=== PATIENT | female | born 1995 | race African-American/Black ===

== ENCOUNTER 2016-09-05 14:11 | Emergency (ER) | payer OTHER ==
[2016-09-05 14:24] VITALS: BMI 26.9
[2016-09-05] MEDS ORDERED: SODIUM CHLORIDE 1,000 ML IV STA (16:28)
[2016-09-05] MEDS ORDERED: MAG HYDROX/AL HYDROX/SIMETH 30 ML UNIT-DOSE CUP PO ONE (16:28)
[2016-09-05] MEDS ORDERED: ONDANSETRON 4 MG/2 ML VIAL IVPUSH ONE (16:28)
--- NOTE | 2016-09-05 16:29 | PDOC ---
History of Present Illness - General Chief Complaint: Pain Stated Complaint: NAUSEA, ABD PAIN, DIZZINESS History Source: Patient Exam Limitations: No Limitations - History of Present Illness Initial Comments: 09/05/16 16:57 HPI: This 21-year-old female complaint of nausea, vomiting, epigastric pain, chills and a fever of over 101 yesterday. She was in the ER last evening however she did not come in and be seen and went home and was found to have a fever and took Tylenol. She is now back again with similar complaints and is in the ER for evaluation. She also came in with a large amount of cutting fruit from the grocery store. She is eating a mairly at this current time. There Is no obvious vomiting. Chief Compliant: Epigastric pain, nausea vomiting MH: Denies FH: Pt has not recently traveled outside the country in the last 30 days. Pt has not been in contact with people who have traveled out of the country, in contact with people who have been ill with fever, n, v, d. SH: smoking use: NONE illicit drug use: NONE alcohol use: NONE PSH: Home med use noted on OCT Allergies: Shellfish and pollen Immunizations: PCP: Does not have a primary FRUIT OR NUT FARMWORKER: Dr. Lambert LMP: G P : Past History - Past Medical History Allergies/Adverse Reactions: Allergies Allergy/AdvReac Type Severity Reaction Status Date / Time shellfish derived Allergy Severe throat Verified 09/05/16 14:24 closes pollen extracts AdvReac Severe Itching Verified 09/05/16 14:24 Home Medications: Ambulatory Orders NK [No Known Home Medication] 09/05/16 Asthma: No Cancer: No Cardiac Disorders: No Diabetes: No HTN: No Seizures: No Thyroid Disease: No - Psycho/Social/Smoking Cessation Hx Anxiety: No Suicidal Ideation: No Smoking History: Never smoked Have you smoked in the past 12 months: No Hx Alcohol Use: Yes (SOCIAL) Drug/Substance Use Hx: No Substance Use Type: None Hx Substance Use Treatment: No Review of Systems - Review of Systems Able to Perform ROS?: Yes Comments:: 09/05/16 17:01 General statement: I'm having abdominal pain as well as nausea and vomiting with a fever Hematology: neg history of bleeding/blood thinners Skin: Neg for lesions, rash, bruising. HEENT: Neg symptoms Respiratory: Neg SOB or difficulty in breathing Cardiac: Neg chest pain GI: Positive epigastric pain, with n/v : Neg problems on voiding MS: Neg for joint pain/stiffness, no edema Neuro: Neg for LOC, weakness, Endocrine: Neg for excess thirst/hunger, cold/heat intolerance, excess sweating Allergies: Neg for drug allergies *Physical Exam - Vital Signs Last Vital Signs Temp Pulse Resp BP Pulse Ox 98.2 F 69 20 120/76 99 09/05/16 14:21 09/05/16 14:21 09/05/16 14:21 09/05/16 14:21 09/05/16 14:21 - Physical Exam Comments: 09/05/16 17:02 General Appearance: This well appearing 21-year-old female who is eating during this interview V/S: hemodynamically stable, afebrile although she states she had a fever and took Tylenol earlier today Skin: WNL of pt's skin color, no signs of pallor, mottling, cyanosis Head:symmetrical Eyes: EOM's intact, PERRLA Ears: denies pain Nose: patent Throat: lips, teeth, gums, tongue, buccal mucos pink and moist Lungs: Chest symmetry equal. Cap refill <3 seconds. Lung sounds clear Cardiac: PMI at R 4MCL space, pos S1 and S2, regular rate. Abdomen: Soft, round, positive for epigastric mild sylvia on palpation : Not observed Muscularskeletal: Gait steady, ambulated in to ER, no edema +PMS Neuro: AAOx3, cognitively intact, speech clear and appropriate. ED Treatment Course - LABORATORY CBC & Chemistry Diagram: 09/05/16 16:40 09/05/16 16:40 Medical Decision Making - Medical Decision Making 09/05/16 17:02 Patient initially seen and examined. Patient is stating she's had some epigastric pain, nausea, vomiting, chills, temperature of 101. This is been going on for last couple of days. a/p Suspicious for a GI disturbance possibly viral 1 labs 2 you a, 3 IV fluids for hydration, 4 Zofran for nausea, 5 Mylanta for acid reflux I explained that she should not be eating at this time as she is here for GI disturbance and we need to evaluate to make sure that the medications are working. 09/05/16 17:57 Pt is requesting food and states she is better. pt will be discharged at this time *DC/Admit/Observation/Transfer Diagnosis at time of Disposition: Gastritis - Discharge Dispostion Disposition: HOME Condition at time of disposition: Good Admit: No - Referrals Referrals: Lamonte Cordero MD [Primary Care Provider] - Hayder Heath MD [Staff Physician] - - Patient Instructions Printed Discharge Instructions: [place] Diet Additional Instructions: Discharge instructions 1. Please follow up with your primary physician within the next few days and explain that you have been seen here in the Emergency Room. 2. If you experience any worsening of symptoms, please return to the ER 3. Rest and stick with a bland diet 4. Drink plenty of water - Post Discharge Activity Work/School Note: Back to Work
[2016-09-05] MEDS ORDERED: ONDANSETRON 4 MG/2 ML VIAL ONE (16:36)
[2016-09-05] MEDS ORDERED: MAG HYDROX/AL HYDROX/SIMETH 30 ML UNIT-DOSE CUP ONE (16:36)
[2016-09-05 16:55] LABS: WHITE BLOOD COUNT 4.5 K/mm3 (4.0-10.0)
[2016-09-05 16:56] LABS: BASOPHIL 0.5 % (0-2.0); EOSINOPHIL 0.1 % (0-4.5); MCH 27.7 pg (25.7-33.7); MCHC 32.7 g/dl (32.0-36.0); MEAN CELL VOLUME 84.6 fl (80-96); MEAN PLT VOLUME 9.3 fl (7.5-11.1); NEUTROPHILS 73.8 % (42.8-82.8); PLATELET COUNT 227 K/MM3 (134-434); RDW 13.9 % (11.6-15.6)
[2016-09-05 17:18] LABS: CALCIUM 9.1 mg/dL (8.5-10.1)
[2016-09-05 17:24] LABS: ALBUMIN 3.8 g/dl (3.4-5.0); ALK PHOS 61 U/L (45-117); ANION GAP 9 (8-16); BILIRUBIN,TOTAL 1.1 mg/dL (0.2-1.0); CO2 24 mmol/L (21-32); CREATININE 0.6 mg/dL (0.55-1.02); GLUCOSE,RANDOM 113 mg/dL (74-106); SGOT/AST 14 U/L (15-37); SGPT/ALT 16 U/L (12-78); TOT PROT 7.1 g/dl (6.4-8.2)
[2016-09-05 17:47] LABS: URINE APPEARANCE SLCLOUDY; URINE BILIRUBIN NEGATIVE (NEGATIVE); URINE BLOOD NEGATIVE (NEGATIVE); URINE COLOR YELLOW; URINE GLUCOSE (UA) NEGATIVE (NEGATIVE); URINE KETONE 2+ (NEGATIVE); URINE NITRITE NEGATIVE (NEGATIVE); URINE PROTEIN NEGATIVE (NEGATIVE); URINE UROBILINOGEN 4.0 E.U/dl E.U./dl (0.2-1.0)
[2016-09-05 17:57] LABS: URINE LEUK ESTERASE TRACE (NEGATIVE)
[2016-09-05 18:06] LABS: URINE MUCUS FEW; URINE RBC 1 /hpf (0-3); URINE WBC 3 /hpf (3-5)
[2016-09-05 18:17] VITALS: BP 120/80; PULSE 72; TEMP 97.5
== END 2016-09-05 18:17 | disposition home or self-care (01) ==
LOC: JER 14:11
PROC: 3E0333Z Introduction of Anti-inflammatory into Peripheral Vein, Percutaneous Approach (ICD-10-PCS; principal; 2016-09-05)
PROC: 3E0337Z Introduction of Electrolytic and Water Balance Substance into Peripheral Vein, Percutaneous Approach (ICD-10-PCS; 2016-09-05)
DX: K29.70 Gastritis, unspecified, without bleeding (principal)
CPT/HCPCS: 36415; 80053; 81003; 81015; 83690; 85025; 96361; 96374; 99284-25

== ENCOUNTER 2017-04-22 03:45 | Inpatient (IN) | payer OTHER ==
[2017-04-22] MEDS ORDERED: AMPICILLIN - 2 GM in SODIUM CHLORIDE 100 ML IVPB ONE (04:15)
[2017-04-22 04:46] LABS: BASOPHIL 0.5 % (0-2.0); EOSINOPHIL 0.4 % (0-4.5); MCH 25.5 pg (25.7-33.7); MCHC 32.1 g/dl (32.0-36.0); MEAN CELL VOLUME 79.4 fl (80-96); MEAN PLT VOLUME 11.2 fl (7.5-11.1); NEUTROPHILS 62.8 % (42.8-82.8); PLATELET COUNT 170 K/MM3 (134-434); RDW 14.7 % (11.6-15.6); WHITE BLOOD COUNT 6.3 K/mm3 (4.0-10.0)
[2017-04-22 04:58] LABS: INR 0.94 (0.82-1.09); PROTHROMBIN TIME (PATIENT) 10.3 SEC (9.98-11.88)
[2017-04-22 05:00] LABS: ACTIVATED PTT 27.9 SECONDS (26.9-34.4)
[2017-04-22 05:08] LABS: ALBUMIN 2.8 g/dl (3.4-5.0); ALK PHOS 281 U/L (45-117); ANION GAP 10 (8-16); BILIRUBIN,TOTAL 0.6 mg/dL (0.2-1.0); CALCIUM 8.7 mg/dL (8.5-10.1); CO2 25 mmol/L (21-32); CREATININE 0.7 mg/dL (0.55-1.02); GLUCOSE,RANDOM 80 mg/dL (74-106); SGOT/AST 19 U/L (15-37); SGPT/ALT 12 U/L (12-78); TOT PROT 6.7 g/dl (6.4-8.2)
[2017-04-22 05:12] VITALS: BMI 28.4
[2017-04-22] MEDS ORDERED: morphine SULFATE/Preservative Free 0.5 MG/ML (1cc Syringe) SPIN ONE (05:16)
[2017-04-22 05:37] LABS: HIV 1 & 2 AB NEGATIVE; HIV 1 AGp24 NEGATIVE
[2017-04-22 05:52] LABS: VENOUS PH 7.34 (7.32-7.42)
[2017-04-22 05:53] LABS: VENOUS BLOOD GAS HCO3 25.2 meq/L (19-25)
[2017-04-22] MEDS ORDERED: CITRIC ACID/SODIUM CITRATE 30 ML UNIT-DOSE CUP PO ONE (06:04)
[2017-04-22] MEDS ORDERED: ONDANSETRON 4 MG/2 ML VIAL IVPB PRN (06:07)
[2017-04-22] MEDS ORDERED: IBUPROFEN 600 MG TABLET (FP) PO PRN (06:07)
[2017-04-22] MEDS ORDERED: METHYLERGONOVINE MALEATE 0.2 MG/1 ML AMP IM PRN (06:07)
[2017-04-22] MEDS ORDERED: IBUPROFEN 800 MG/8 ML IJ IVPB PRN (06:08)
--- NOTE | 2017-04-22 06:11 | OP ---
Operative Note - Note: Operative Date: 04/22/17 Pre-Operative Diagnosis: Non Reassuring Heart rate Operation: Primary Low Transverse Findings: Baby girl in ROT position Post-Operative Diagnosis: Same as Pre-op Surgeon: Vanesa Triplett Car Audio Installer: Kevan Mckeon Anesthesia: Spinal Specimens Removed: Placenta Estimated Blood Loss (mls): 700
[2017-04-22] MEDS ORDERED: ELECTROLYTE-148 SOLN 1,000 ML IV SCH (06:15)
--- NOTE | 2017-04-22 06:16 | HP ---
Past Medical History - Admission Chief Complaint: Labor pain History of Present Illness: 21 yo @ 40 weeks gestation, EDC 04/16/17, presents to L&D c/o labor pain. Patient was admitted but few minutes later it was observed that heart rate was not reassuring and decision made for . History Source: Patient Limitations to Obtaining History: No Limitations - Past Medical History ...: 2 ...Para: 1 ...Term: 1 ...: 0 ...Spon : 0 ...Induced : 0 ...Multiple Gestation: 0 ...LMP: 07/10/16 ... Weeks Gestation by Dates: 40.1 ...EDC by Dates: 04/23/17 ...EDC by Sono: 04/16/17 - Past Surgical History Past Surgical History: Yes: None Hx Myomectomy: No Hx Transabdominal Cerclage: No - Smoking History Smoking history: Never smoked Have you smoked in the past 12 months: No - Alcohol/Substance Use Hx Alcohol Use: No History of Substance Use: reports: None - Social History History of Recent Travel: No Home Medications - Allergies Allergies/Adverse Reactions: Allergies Allergy/AdvReac Type Severity Reaction Status Date / Time shellfish derived Allergy Severe throat Verified 09/05/16 14:24 closes pollen extracts AdvReac Severe Itching Verified 09/05/16 14:24 - Home Medications Home Medications: Ambulatory Orders Pnv 29-1 Tablet 1 tab PO DAILY 04/22/17 Family Disease History - Family Disease History Family History: Unremarkable Review of Systems - Review of Systems Constitutional: reports: No Symptoms Eyes: reports: No Symptoms HENT: reports: No Symptoms Neck: reports: No Symptoms Cardiovascular: reports: No Symptoms Respiratory: reports: No Symptoms Gastrointestinal: reports: No Symptoms Genitourinary: reports: Pain Breasts: reports: No Symptoms Reported Musculoskeletal: reports: No Symptoms Neurological: reports: No Symptoms Psychiatric: reports: No Symptoms Pain Intensity: 8 Physical Exam - Maternity Vital Signs: Vital Signs Temperature 99.5 F 04/22/17 03:47 Pulse Rate 80 04/22/17 03:47 Respiratory Rate 20 04/22/17 03:47 Blood Pressure 124/74 04/22/17 03:47 O2 Sat by Pulse Oximetry (%) Constitutional: Yes: Well Nourished Eyes: Yes: Conjunctiva Clear HENT: Yes: Atraumatic Neck: Yes: Supple Cardiovascular: Yes: Regular Rate and Rhythm Lungs: Clear to auscultation - Abdominal Exam/OB Presentation: Vertex Contractions: Yes Intensity: Mod/Strong - Vaginal Exam/OB Vaginal Bleediing: No Speculum Exam: No Dilatation (cm): 7 Effacement (%): 100 Amniotic Membrane Status: Bulging Station: -2 - Physical Exam Musculoskeletal: Yes: WNL Extremities: Yes: WNL ...Motor Strength: WNL Psychiatric: Yes: Alert, Oriented - Labs Lab Results: CBC, BMP 04/22/17 04:25 04/22/17 04:25 Problem List - Problems (1) Status post primary low transverse section Code(s): Z98.891 - HISTORY OF UTERINE SCAR FROM PREVIOUS SURGERY Assessment/Plan Active labor Non reassuring heart rate Prep and shave Consent signed Anesthesia to see patient
[2017-04-22] MEDS: D5W-LR W/ 20 UNITS OXYTOCIN 1,000 ML IV SCH ×2 (06:44→13:36)
[2017-04-22 08:01] LABS: URINE MARIJUANA THC NEGATIVE ng/ml (CUTOFF=50)
[2017-04-22] MEDS: FERROUS SO4 325 MG TABLET (FP) PO SCH ×2 (10:46→22:20)
[2017-04-22] MEDS: PRENATAL VITAMINS W/ FOLIC ACID TABLET (FP) PO SCH (10:46)
[2017-04-22] MEDS: IBUPROFEN 600 MG TABLET (FP) PO PRN (22:20)
[2017-04-22] MEDS: ACETAMINOPHEN 325 MG TABLET (FP) PO PRN (22:20)
[2017-04-22] MEDS: SIMETHICONE 80 MG TAB.CHEW (FP) PO PRN (22:20)
[2017-04-23] MEDS ORDERED: BISACODYL 10 MG SUPP.RECT RC PRN (06:07)
[2017-04-23 08:49] LABS: BASOPHIL 0.1 % (0-2.0); EOSINOPHIL 0.1 % (0-4.5); MCH 25.1 pg (25.7-33.7); MCHC 31.3 g/dl (32.0-36.0); MEAN PLT VOLUME 10.5 fl (7.5-11.1); NEUTROPHILS 76.1 % (42.8-82.8); PLATELET COUNT 162 K/MM3 (134-434); RDW 14.6 % (11.6-15.6); WHITE BLOOD COUNT 9.7 K/mm3 (4.0-10.0)
--- NOTE | 2017-04-23 09:39 | PN ---
Progress Note (short form) - Note Progress Note: Post op day#1.S/P C section under spinal anesthesia with duramorph uneventful.Patient stable and c/o little pain for which she is on medication.No any anesthesia related problem.Patient Dc from the anesthesia care.
[2017-04-23] MEDS: PRENATAL VITAMINS W/ FOLIC ACID TABLET (FP) PO SCH (09:40)
[2017-04-23] MEDS: FERROUS SO4 325 MG TABLET (FP) PO SCH ×2 (09:40→23:16)
[2017-04-23] MEDS: ACETAMINOPHEN 325 MG TABLET (FP) PO PRN (09:41)
[2017-04-23] MEDS: IBUPROFEN 600 MG TABLET (FP) PO PRN ×3 (09:41→21:56)
[2017-04-23] MEDS: SIMETHICONE 80 MG TAB.CHEW (FP) PO PRN ×3 (09:42→21:55)
--- NOTE | 2017-04-23 12:31 | PN ---
Post Progress Note - Subjective Subjective: 21 yo Para 2, status post primary , seen and evaluated. No complaints Post Day: 1 Type of Delivery: Primary C/S Vital Signs: Vital Signs Temperature 98.2 F 04/23/17 08:38 Pulse Rate 84 04/23/17 08:38 Respiratory Rate 20 04/23/17 08:38 Blood Pressure 130/78 04/23/17 08:38 O2 Sat by Pulse Oximetry (%) 100 04/22/17 06:45 Breast Exam: Yes: Soft Uterus: Yes: Fundus Firm Incision: Yes: Dressing dry and intact Abdomen/GI: Yes: Abdomen soft, Tolerating PO Lochia: Yes: Rubra Lochia, amount: Small Extremities: Yes: Calves non-tender Perineum: Yes: Intact Activity: Ambulating - Labs Labs: CBC WBC 9.7 K/mm3 (4.0-10.0) D 04/23/17 07:30 RBC 3.44 M/mm3 (3.60-5.2) L 04/23/17 07:30 Hgb 8.6 GM/dL (10.7-15.3) L D 04/23/17 07:30 Hct 27.5 % (32.4-45.2) L D 04/23/17 07:30 MCV 80.0 fl (80-96) 04/23/17 07:30 MCH 25.1 pg (25.7-33.7) L 04/23/17 07:30 MCHC 31.3 g/dl (32.0-36.0) L 04/23/17 07:30 RDW 14.6 % (11.6-15.6) 04/23/17 07:30 Plt Count 162 K/MM3 (134-434) 04/23/17 07:30 MPV 10.5 fl (7.5-11.1) 04/23/17 07:30 Neutrophils % 76.1 % (42.8-82.8) D 04/23/17 07:30 Lymphocytes % 15.5 % (8-40) D 04/23/17 07:30 Monocytes % 8.2 % (3.8-10.2) 04/23/17 07:30 Eosinophils % 0.1 % (0-4.5) 04/23/17 07:30 Basophils % 0.1 % (0-2.0) 04/23/17 07:30 Problem List - Problems (1) Status post primary low transverse section Code(s): Z98.891 - HISTORY OF UTERINE SCAR FROM PREVIOUS SURGERY Assessment/Plan Status post primary Stable Ambulation Continue Post op care
[2017-04-23] MEDS: oxyCODONE HCL 5 MG TABLET PO PRN ×2 (15:41→21:55)
[2017-04-24] MEDS: SIMETHICONE 80 MG TAB.CHEW (FP) PO PRN ×4 (03:57→21:22)
[2017-04-24] MEDS: oxyCODONE HCL 5 MG TABLET PO PRN ×4 (03:58→21:22)
[2017-04-24] MEDS: IBUPROFEN 600 MG TABLET (FP) PO PRN ×2 (03:58→21:21)
--- NOTE | 2017-04-24 08:30 | PN ---
Post Progress Note - Subjective Subjective: c/o pain scale 6-7/10 Post Day: 2 Type of Delivery: Primary C/S Vital Signs: Vital Signs Temperature 98.3 F 04/24/17 07:10 Pulse Rate 79 04/24/17 07:10 Respiratory Rate 20 04/24/17 07:10 Blood Pressure 127/75 04/24/17 07:10 O2 Sat by Pulse Oximetry (%) 100 04/22/17 06:45 Breast Exam: Yes: Soft, Other (BF ). No: Engorged Uterus: Yes: Fundus Firm, Fundus below umbilicus, Non-tender Incision: Yes: Dressing dry and intact (to be removed ). No: Redness, Oozing Abdomen/GI: Yes: Abdomen soft, Passing flatus (BM not done ), Tolerating PO ( diet ). No: Abdominal Distention, Tender Lochia: Yes: Rubra Lochia, amount: Moderate Extremities: Yes: Calves non-tender, Edema Perineum: Yes: Intact Activity: Ambulating - Labs Labs: CBC WBC 9.7 K/mm3 (4.0-10.0) D 04/23/17 07:30 RBC 3.44 M/mm3 (3.60-5.2) L 04/23/17 07:30 Hgb 8.6 GM/dL (10.7-15.3) L D 04/23/17 07:30 Hct 27.5 % (32.4-45.2) L D 04/23/17 07:30 MCV 80.0 fl (80-96) 04/23/17 07:30 MCH 25.1 pg (25.7-33.7) L 04/23/17 07:30 MCHC 31.3 g/dl (32.0-36.0) L 04/23/17 07:30 RDW 14.6 % (11.6-15.6) 04/23/17 07:30 Plt Count 162 K/MM3 (134-434) 04/23/17 07:30 MPV 10.5 fl (7.5-11.1) 04/23/17 07:30 Neutrophils % 76.1 % (42.8-82.8) D 04/23/17 07:30 Lymphocytes % 15.5 % (8-40) D 04/23/17 07:30 Monocytes % 8.2 % (3.8-10.2) 04/23/17 07:30 Eosinophils % 0.1 % (0-4.5) 04/23/17 07:30 Basophils % 0.1 % (0-2.0) 04/23/17 07:30 Assessment/Plan Anemia stable plan ct po care
[2017-04-24] MEDS: PRENATAL VITAMINS W/ FOLIC ACID TABLET (FP) PO SCH (09:21)
[2017-04-24] MEDS: FERROUS SO4 325 MG TABLET (FP) PO SCH ×2 (09:21→21:25)
[2017-04-24] MEDS: ACETAMINOPHEN 325 MG TABLET (FP) PO PRN ×2 (10:33→15:47)
[2017-04-24] MEDS: SENNOSIDES/DOCUSATE COMBO (SENNA PLUS) TABLET (UD) PO PRN (21:22)
[2017-04-25 08:05] LABS: BASOPHIL 0.2 % (0-2.0); EOSINOPHIL 0.9 % (0-4.5); MCHC 31.9 g/dl (32.0-36.0); MEAN CELL VOLUME 78.6 fl (80-96); MEAN PLT VOLUME 9.8 fl (7.5-11.1); NEUTROPHILS 63.4 % (42.8-82.8); PLATELET COUNT 225 K/MM3 (134-434); RDW 14.8 % (11.6-15.6); WHITE BLOOD COUNT 5.9 K/mm3 (4.0-10.0)
[2017-04-25] MEDS: PRENATAL VITAMINS W/ FOLIC ACID TABLET (FP) PO SCH (09:23)
[2017-04-25] MEDS: SIMETHICONE 80 MG TAB.CHEW (FP) PO PRN ×2 (09:24→17:40)
[2017-04-25] MEDS: FERROUS SO4 325 MG TABLET (FP) PO SCH ×2 (09:25→22:58)
[2017-04-25] MEDS: IBUPROFEN 600 MG TABLET (FP) PO PRN ×2 (09:25→17:41)
[2017-04-25] MEDS: oxyCODONE HCL 5 MG TABLET PO PRN ×2 (09:26→17:40)
--- NOTE | 2017-04-25 09:52 | PN ---
Post Progress Note - Subjective Subjective: 21 yo status post primary , seen and evaluated. Doing well, no complaints. Post Day: 3 Type of Delivery: Primary C/S Vital Signs: Vital Signs Temperature 98.5 F 04/25/17 06:00 Pulse Rate 86 04/25/17 06:00 Respiratory Rate 18 04/25/17 06:00 Blood Pressure 130/88 04/25/17 06:00 O2 Sat by Pulse Oximetry (%) 100 04/22/17 06:45 Breast Exam: Yes: Soft Uterus: Yes: Fundus Firm Incision: Yes: [place] intact Abdomen/GI: Yes: Abdomen soft, Tolerating PO Lochia: Yes: Rubra Lochia, amount: Small Extremities: Yes: Calves non-tender Perineum: Yes: Intact Activity: Ambulating - Labs Labs: CBC WBC 5.9 K/mm3 (4.0-10.0) D 04/25/17 07:30 RBC 3.54 M/mm3 (3.60-5.2) L 04/25/17 07:30 Hgb 8.9 GM/dL (10.7-15.3) L 04/25/17 07:30 Hct 27.8 % (32.4-45.2) L 04/25/17 07:30 MCV 78.6 fl (80-96) L 04/25/17 07:30 MCH 25.0 pg (25.7-33.7) L 04/25/17 07:30 MCHC 31.9 g/dl (32.0-36.0) L 04/25/17 07:30 RDW 14.8 % (11.6-15.6) 04/25/17 07:30 Plt Count 225 K/MM3 (134-434) D 04/25/17 07:30 MPV 9.8 fl (7.5-11.1) 04/25/17 07:30 Neutrophils % 63.4 % (42.8-82.8) 04/25/17 07:30 Lymphocytes % 26.0 % (8-40) D 04/25/17 07:30 Monocytes % 9.5 % (3.8-10.2) 04/25/17 07:30 Eosinophils % 0.9 % (0-4.5) D 04/25/17 07:30 Basophils % 0.2 % (0-2.0) 04/25/17 07:30 Problem List - Problems (1) Status post primary low transverse section Code(s): Z98.891 - HISTORY OF UTERINE SCAR FROM PREVIOUS SURGERY Assessment/Plan Status post primary Stable Ambulation Continue Post op care
[2017-04-26] MEDS: SIMETHICONE 80 MG TAB.CHEW (FP) PO PRN ×2 (03:54→10:50)
[2017-04-26] MEDS: IBUPROFEN 600 MG TABLET (FP) PO PRN ×2 (03:54→10:51)
[2017-04-26] MEDS: oxyCODONE HCL 5 MG TABLET PO PRN ×2 (03:55→10:50)
[2017-04-26] MEDS: SENNOSIDES/DOCUSATE COMBO (SENNA PLUS) TABLET (UD) PO PRN (03:57)
--- NOTE | 2017-04-26 07:41 | DS ---
Physical Exam-HIDE EXAMINER Vital Signs: Vital Signs Temperature 98.8 F 04/25/17 21:48 Pulse Rate 79 04/25/17 21:48 Respiratory Rate 20 04/25/17 21:48 Blood Pressure 112/66 04/25/17 21:48 O2 Sat by Pulse Oximetry (%) 100 04/22/17 06:45 Constitutional: Yes: Well Nourished, No Distress, Calm Eyes: Yes: WNL, Conjunctiva Clear, EOM Intact HENT: Yes: WNL, Atraumatic, Normocephalic Neck: Yes: WNL, Supple, Trachea Midline Cardiovascular: Yes: WNL, Regular Rate and Rhythm Respiratory: Yes: WNL, Regular, CTA Bilaterally Gastrointestinal: Yes: WNL ...Rectal Exam: Yes: WNL Renal/: Yes: WNL ....Post : Yes: Uterus firm, Uterus non-tender, Slight lochia rubra Breast(s): Yes: WNL Musculoskeletal: Yes: WNL Extremities: Yes: WNL Edema: No Integumentary: Yes: WNL Wound/Incision: Yes: Clean/Dry, Well Approximated, [place] Intact Neurological: Yes: WNL, Alert, Oriented ...Motor Strength: WNL Psychiatric: Yes: WNL, Alert, Oriented Labs: CBC, BMP 04/25/17 07:30 04/22/17 04:25 Delivery - Delivery Section: Low Flap Transverse Type of Anesthesia: Spinal EBL (cc): 700 Delivery, Single - Stages of Labor Date 1st Stage Initiatied: 04/22/17 Time 1st Stage Initiated: 00:00 Date of Delivery: 04/22/17 Time of Delivery: 05:32 Time Placenta Delivered: 05:33 Placenta: Yes: Expressed - Condition of Safety Lamp Keeper/Trade Mark Examiner Present: Yes Name: Alondra Romero Gender: Female Weight: 7 lb 8 oz Position: Right, OT Total Hours ROM (Hrs/Mins): 3MINS. - 1 Minute Total Score: 9 5 Minutes Total Score: 9 - Feeding Plan Initial Plan: Elected not to breastfeed exclusively throughout hospitalization Discharge Summary Reason For Visit: LABOR Current Active Problems Status post primary low transverse section (Acute) Procedures: Principal: LST c/s Condition: Good - Instructions Diet, Activity, Other Instructions: regular diet, follow up [facility] care 1 week - Home Medications Comprehensive Discharge Medication List: Ambulatory Orders Pnv 29-1 Tablet 1 tab PO DAILY 04/22/17
[2017-04-26 09:05] VITALS: BP 123/73; PULSE 68; TEMP 98
[2017-04-26] MEDS: FERROUS SO4 325 MG TABLET (FP) PO SCH (10:48)
[2017-04-26] MEDS: PRENATAL VITAMINS W/ FOLIC ACID TABLET (FP) PO SCH (10:48)
--- NOTE | 2017-04-26 15:48 | PATH ---
Surgical Pathology Report Patient Name: BRANDON ROACH Med. Rec. #: [id number] /Age/Gender: 1995 (Age: 21) / F Account: [id number] Location: [facility] OBS/ROUTE RIDER Taken: 04/22/2017 Received: 04/23/2017 Reported: 04/26/2017 Physicians: Vanesa Triplett M.D. Specimen(s) Received PLACENTA Clinical History , 40.4 weeks gestation Primary c/section for nonreassuring heart rate Final Diagnosis PLACENTA, DELIVERY: FOCALLY DISRUPTED THIRD TRIMESTER PLACENTA WITH FOCAL PARENCHYMAL HEMORRHAGE, MILD INCREASE IN PREVILLOUS, PERIVILLOUS, AND PRECHORIONIC FIBRIN DEPOSITION, THREE VESSEL UMBILICAL CORD, AND PLACENTAL MEMBRANES WITH FOCAL AMNION HYPERPLASIA. Electronically Signed Winston Irwin M.D. Gross Description The specimen is received fresh, labeled "placenta" and is a 550 gram, 17.0 x 14.0 x 2.8 cm placenta with attached membranes and umbilical cord. The attached membranes are hernandez, translucent focal opacities and insert marginally. The umbilical cord measures 30 cm in length and averages 0.9 cm in diameter. The cord inserts eccentrically, 5 cm. to the nearest margin. No true knots or strictures are identified. Cut surface of the umbilical cord reveals 3 vessels. The surface is lu-blue with moderate fibrin deposition and appropriate caliber vessels. The maternal surface is red-brown with focal defects. Sectioning reveals a 0.8 cm in greatest dimension hemorrhagic lesion. The remaining placental parenchyma is red-brown and spongy. Heel Wheeler sections are submitted in 4 cassettes as follows: 1-membrane roll and umbilical cord; 2-lesion; 3-4-full thickness sections of placenta. 04/25/201704/25/2017
--- NOTE | 2017-05-13 01:14 | OP ---
DATE OF OPERATION: 04/22/2017 PREOPERATIVE DIAGNOSIS: Nonreassuring heart rate at 40 weeks. POSTOPERATIVE DIAGNOSIS: Nonreassuring feta heart rate at 40 weeks. PROCEDURE: Primary low transverse section. SURGEON: Vanesa Triplett MD PLAYERS CLUB REPRESENTATIVE: JULIANE Moran ANESTHESIA: General. COMPLICATIONS: None. ESTIMATED BLOOD LOSS: 600 mL. PROCEDURE: The patient was taken to the operating room where spinal anesthesia was administered. Patient was then prepped and draped in the appropriate sterile fashion. A Pfannenstiel skin incision was made and carried down through the underlying layer of fascia. The fascia was incised in the midline and extended laterally. The superior aspect of the fascial incision was then grasped with a Vargas clamp, elevated, and the rectus muscle was dissected off bluntly. Attention was then turned to the inferior aspect of the fascial incision, which in a similar fashion was then grasped with a Vargas clamp, elevated, and the rectus muscles were dissected off bluntly. The rectus muscles were then in the midline. The peritoneum was identified and entered sharply with Metzenbaum scissors. This incision was extended superiorly and inferiorly with good visualization of the bladder. The vesicouterine peritoneum was then grasped with a pickup and entered sharply with Metzenbaum scissors. This incision was extended laterally and a bladder flap was created digitally. The bladder blade was reinserted and the lower uterine segment was incised using a 10-blade. This incision was extended laterally and the head delivered atraumatically. Nose and mouth were suctioned. The cord was clamped and cut. The infant was handed to the awaiting development professional. The placenta was removed manually. The uterus was exteriorized and cleared of all clots and debris. The uterine incision was repaired using 0 Biosyn in a running fashion. A second layer of the same suture was used to a means to provide excellent hemostasis. The uterus was returned to the abdomen. Pelvis was completely irrigated. The peritoneum was closed using 2-0 Biosyn. The fascia was reapproximated using 0 Vicryl in a running fashion. The skin was closed in a subcuticular fashion using 3-0 Vicryl. The patient tolerated the procedure well. Patient was then taken to the PACU in stable condition. PATHOLOGY: Placenta. Bubba MERRITT/[id number]
--- NOTE | 2017-06-06 07:53 | OP ---
DATE OF OPERATION: 04/22/2017 PREOPERATIVE DIAGNOSIS: Intrauterine at 40.5 weeks with nonreassuring heart rate. POSTOPERATIVE DIAGNOSIS: Intrauterine at 40.5 weeks with nonreassuring heart rate. PROCEDURE: Primary low transverse section. SURGEON: Vanesa Triplett MD FINANCIAL CENTER MANAGER: JULIANE Moran ANESTHESIA: Spinal. COMPLICATIONS: None. ESTIMATED BLOOD LOSS: 600 mL DESCRIPTION OF PROCEDURE: Patient was taken to the operating room where spinal anesthesia was administered. Patient was then prepped and draped in proper sterile fashion. A Pfannenstiel skin incision was made and carried down to the underlying layer of fascia. The fascia was incised in the midline and extended laterally. The superior aspect of the fascial incision was then grasped with a Vargas clamp, elevated, and the rectus muscles dissected off bluntly. The rectus muscles were in the midline. Peritoneum identified, then entered sharply with the Metzenbaum scissors. The peritoneal incision was then extended superiorly and inferiorly with good visualization of the bladder. Then, the vesicouterine peritoneum was then grasped with pickups and entered sharply with the Metzenbaum scissors. This incision was extended laterally and a bladder flap created digitally. The bladder blade was then reinserted. Then, the lower uterine segment was then incised using a 10 blade. This incision was extended laterally, and the head delivered atraumatically. Nose and mouth were suctioned and the cord clamped and cut. The infant was handed to the waiting captain room service. The placenta was removed manually. The uterus was exteriorized and cleared of all clots and debris. The uterine incision was repaired using 0 Biosyn in a running locked fashion. A second layer of the same suture was used as a means to provide excellent hemostasis. Then, the pelvis was completely irrigated. The uterus was returned to the abdomen. The peritoneum was closed using 2-0 Biosyn. The fascia was reapproximated using 0 Vicryl in a running fashion, and the skin was closed with godfrey. Patient tolerated the procedure well. Patient was then taken to PACU in stable condition. PATHOLOGY: Placenta. Bubba [id number]
== END 2017-04-26 12:45 | disposition home or self-care (01) | DRG 540 ==
LOC: JLDR 03:45 → J3W 08:00
PROVIDERS: ADMIT Obstetrics & Gynecology; ATTEND Obstetrics & Gynecology
PROC: 10D00Z1 Extraction of Products of Conception, Low, Open Approach (ICD-10-PCS; principal; 2017-04-22)
DX: O76 Abnormality in fetal heart rate and rhythm complicating labor and delivery (principal); Z3A.40 40 weeks gestation of pregnancy; Z37.0 Single live birth
CPT/HCPCS: 36415; 80053; 80307; 82803; 85025; 85610; 85730; 86593; 86762; 86850; 86900; 86901; 87340; 87389; 88307-TC

== ENCOUNTER 2019-08-31 20:02 | Emergency (ER) | payer OTHER ==
[2019-08-31 20:10] VITALS: BP 133/84; PULSE 68; TEMP 98.7; BMI 30.7
--- NOTE | 2019-08-31 22:03 | PDOC ---
History of Present Illness - General Chief Complaint: Toothache Stated Complaint: PAIN Time Seen by Provider: 08/31/19 22:03 History Source: Patient Exam Limitations: No Limitations - History of Present Illness Initial Comments: 08/31/19 22:24 Chief complaint: Toothache Patient is a healthy 24-year-old female with 2 days of toothache, taking Tylenol , Aleve, Excedrin without any relief. Patient has an appoint with the dentist on Saturday. Patient had problem with her wisdom teeth in the past but she also went to the dentist today to sign up and she thinks she has a hole in the tooth. No fever. Patient has normal speech and is able to swallow. GENERAL/CONSTITUTIONAL: No fever, weakness. dizziness HEAD, EYES, EARS, NOSE AND THROAT: No change in vision. No ear pain or discharge. No sore throat.+ Toothache CARDIOVASCULAR: No chest pain RESPIRATORY: No shortness of breath or cough GASTROINTESTINAL: No pain, nausea, vomiting, diarrhea or constipation GENITOURINARY: No dysuria MUSCULOSKELETAL: No neck or back pain SKIN: No rash NEUROLOGIC: No headache, vertigo, loss of consciousness, or loss of sensation. GENERAL: The patient is awake, alert, and fully oriented, in no acute distress. HEAD: Normal with no signs of trauma. EYES: Pupils equal, round and reactive to light, sclera anicteric, conjunctiva clear. ENT: Teeth intact, mild tenderness to the posterior lower right and left teeth, right worse than left, no gross edema, swelling, no sub-lingular swelling, no submandibular swelling. Pharynx: no erythema, no exudate, uvula midline NECK: supple CHEST: clear, nontender, rr ABD: soft, nontender BACK: no tenderness or signs of injury EXTREMITIES: Normal range of motion, no edema. NEUROLOGICAL: Normal speech, normal gait. SKIN: Warm, Dry Past History - Past Medical History Allergies/Adverse Reactions: Allergies Allergy/AdvReac Type Severity Reaction Status Date / Time shellfish derived Allergy Severe throat Verified 08/31/19 20:07 closes pollen extracts AdvReac Severe Itching Verified 08/31/19 20:07 Home Medications: Ambulatory Orders Pnv 29-1 Tablet 1 tab PO DAILY 04/22/17 Ibuprofen [Motrin -] 600 mg PO QID #28 tablet 04/26/17 Amoxicillin 875 mg PO BID #14 tablet 08/31/19 Hydrocodone/Acetaminophen [Hydrocodone-Acetamin 5-325 mg] 1 each PO Q4H #20 tablet MDD 6 08/31/19 Asthma: No Cancer: No Cardiac Disorders: No COPD: No Diabetes: No HTN: No Seizures: No Thyroid Disease: No - Psycho Social/Smoking Cessation Hx Smoking History: Never smoked Have you smoked in the past 12 months: No Hx Alcohol Use: No Drug/Substance Use Hx: No Substance Use Type: None Hx Substance Use Treatment: No *Physical Exam - Vital Signs Last Vital Signs Temp Pulse Resp BP Pulse Ox 98.7 F 68 18 133/84 99 08/31/19 20:07 08/31/19 20:07 08/31/19 20:07 08/31/19 20:07 08/31/19 20:07 Medical Decision Making - Medical Decision Making 08/31/19 22:25 Healthy 24-year-old female with toothache for 2 days, might be wisdom teeth but patient thinks she has a small hole in one tooth that may be her broken tooth which is not quite evident on exam but she otherwise has healthy looking teeth. There is no concern for deep abscess. Patient has not been here for this before. Patient has an appoint with a dentist on Saturday. Will put on amoxicillin given history, and better pain control, will give small amount of hydrocodone. Discussed issues, findings, results, applicable medications and treatments and follow-up. All these were understood and all questions were answered Discharge - Discharge Information Problems reviewed: Yes Clinical Impression/Diagnosis: Tooth ache Condition: Stable Disposition: HOME - Admission No - Additional Discharge Information Prescriptions: Amoxicillin 875 mg PO BID #14 tablet Hydrocodone/Acetaminophen [Hydrocodone-Acetamin 5-325 mg] 1 each PO Q4H #20 tablet MDD 6 Prescription Drug Monitoring Program (I-STOP) results: I-STOP not reviewed - Follow up/Referral Referrals: Jonathon Carlos MD [Primary Care Provider] - - Patient Discharge Instructions Patient Printed Discharge Instructions: DI for Dental Pain Additional Instructions: Drink 2-3 L of water daily Take amoxicillin, every 12 hours until finished, even if you feel better Motrin 600 mg every 6 hours for fever and pain. If still in pain you can also take the hydrocodone 1 tablet every 4-6 hours It is very important for you to follow-up with the dentist as scheduled on Saturday Return to the nearest ER if short of breath, unable to swallow or feeling sicker - Post Discharge Activity
== END 2019-09-01 00:13 | disposition home or self-care (01) ==
LOC: JERFT 20:02
DX: K08.89 Other specified disorders of teeth and supporting structures (principal); Z91.013 Allergy to seafood; Z91.048 Other nonmedicinal substance allergy status
CPT/HCPCS: 99281-25

== ENCOUNTER 2022-03-09 14:48 | Emergency (ER) | payer OTHER ==
[2022-03-09 15:18] VITALS: BP 110/67; PULSE 69; RESP 18; TEMP 97.9; BMI 25.7
[2022-03-09] MEDS ORDERED: LIDOCAINE 5% TOPICAL PATCH TP ONE (16:20)
[2022-03-09] MEDS ORDERED: ACETAMINOPHEN 325 MG TABLET (FP) PO ONE (16:20)
[2022-03-09] MEDS ORDERED: KETOROLAC TROMETHAMINE 30 MG/1 ML VIAL IM ONE (16:20)
[2022-03-09] MEDS ORDERED: CYCLOBENZAPRINE HCL 10 MG TABLET (FP) PO ONE (16:20)
[2022-03-09] MEDS ORDERED: LIDOCAINE 5% TOPICAL PATCH ONE (16:30)
[2022-03-09] MEDS ORDERED: CYCLOBENZAPRINE HCL 10 MG TABLET (FP) ONE (16:31)
[2022-03-09] MEDS ORDERED: ACETAMINOPHEN 325 MG TABLET (FP) ONE (16:31)
[2022-03-09] MEDS ORDERED: KETOROLAC TROMETHAMINE 30 MG/1 ML VIAL ONE (16:31)
[2022-03-09] MEDS ORDERED: LIDOCAINE PATCH REMOVAL MC SCH (22:00)
== END 2022-03-09 18:30 | disposition home or self-care (01) ==
LOC: JERFT 14:48
PROC: 3E0233Z Introduction of Anti-inflammatory into Muscle, Percutaneous Approach (ICD-10-PCS; principal; 2022-03-09)
DX: M54.2 Cervicalgia (principal); M54.50 Low back pain, unspecified; V43.62XA Car passenger injured in collision with other type car in traffic accident, initial encounter
CPT/HCPCS: 72100-TC-FY; 72125-TC; 99284-25

== ENCOUNTER 2022-06-19 10:11 | Emergency (ER) | payer OTHER ==
[2022-06-19 10:35] VITALS: BP 112/63; PULSE 84; RESP 18; TEMP 98; BMI 26.7
== END 2022-06-19 11:14 | disposition home or self-care (01) ==
LOC: JER 10:11
DX: R09.81 Nasal congestion (principal)
CPT/HCPCS: 0241U-QW; 99283-25

== ENCOUNTER 2022-09-25 12:22 | Emergency (ER) | payer OTHER ==
[2022-09-25 12:48] VITALS: BP 119/70; PULSE 73; RESP 18; TEMP 98; BMI 28.8
[2022-09-25] MEDS ORDERED: MAG HYDROX/AL HYDROX/SIMETH -MYLANTA- ORAL SUSPENSION PO ONE (14:22)
[2022-09-25] MEDS ORDERED: ACETAMINOPHEN 1000 MG/100 ML BAG IVPB ONE (14:22)
[2022-09-25] MEDS ORDERED: SODIUM CHLORIDE 0.9% 500 ML INFUS.BAG IV ONE (14:22)
[2022-09-25] MEDS ORDERED: ONDANSETRON 4 MG/2 ML VIAL IVPUSH ONE (14:22)
[2022-09-25] MEDS ORDERED: ONDANSETRON 4 MG/2 ML VIAL ONE (14:38)
[2022-09-25] MEDS ORDERED: MAG HYDROX/AL HYDROX/SIMETH 30 ML UNIT-DOSE CUP ONE (14:38)
[2022-09-25] MEDS ORDERED: ACETAMINOPHEN INJECTION 100 ML IVPB ONE (14:38)
[2022-09-25 15:17] LABS: BASO % 0.2 % (0-2.0); EOS % 0.2 % (0-4.5); HEMATOCRIT 37.1 % (32.4-45.2); LYMPH % 26.6 % (8-40); MCH 27.5 pg (25.7-33.7); MCHC 32.4 g/dl (32.0-36.0); MEAN CELL VOLUME 84.9 fl (80-96); MONO % 10.5 % (3.8-10.2); NEUT % 62.5 % (42.8-82.8); PLATELET COUNT 252 10^3/uL (134-434); RBC 4.37 M/mm3 (3.60-5.2); RDW 14.3 % (11.6-15.6)
[2022-09-25 15:32] LABS: BLOOD UREA NITROGEN 10.7 mg/dL (7-18)
[2022-09-25 15:33] LABS: ALBUMIN 3.8 g/dl (3.4-5.0)
[2022-09-25 15:36] LABS: CREATININE 0.9 mg/dL (0.55-1.3)
[2022-09-25 15:37] LABS: BILIRUBIN,TOTAL 1.1 mg/dL (0.2-1); TOT PROT 7.6 g/dl (6.4-8.2)
[2022-09-25 15:45] LABS: URINE APPEARANCE CLEAR; URINE BILIRUBIN NEGATIVE (NEGATIVE); URINE COLOR DK YELLOW; URINE GLUCOSE (UA) NEGATIVE (NEGATIVE); URINE KETONE TRACE (NEGATIVE)
[2022-09-25 15:46] LABS: PH,URINE 5.5 (5.0-8.0); URINE LEUK ESTERASE NEGATIVE (NEGATIVE); URINE NITRITE NEGATIVE (NEGATIVE); URINE PROTEIN 1+ (NEGATIVE)
== END 2022-09-25 17:20 | disposition home or self-care (01) ==
LOC: JER 12:22
PROC: 3E033GC Introduction of Other Therapeutic Substance into Peripheral Vein, Percutaneous Approach (ICD-10-PCS; principal; 2022-09-25)
DX: B34.9 Viral infection, unspecified (principal)
CPT/HCPCS: 0241U-QW; 36415; 80053; 81003; 83690; 84703; 85025; 87086; 99284-25